=== PATIENT | female | born 1940 | race Caucasian/White ===

== ENCOUNTER 2017-05-20 10:33 | Inpatient (IN) | payer BC, MEDICARE ==
[~2017-05-20] VITALS: Ht 167.6 cm; Wt 68.0 kg
[~2017-05-20 10:33] MED LIST: HYDR12.56 PO
[2017-05-20 10:37] VITALS: BP 164/95; PULSE 68; RESP 16; TEMP 98.1; O2SAT 95
[2017-05-20 11:00] VITALS: BP_SYST 168; BP_SYST 183; BP_DIAS 79; BP_DIAS 82; PULSE 61; RESP 18; TEMP 98.4; O2SAT 97
[2017-05-20] MEDS ORDERED: NITROGLYCERIN 0.4 MG SL 25 TABS/BTL SL ONE (11:00)
[2017-05-20] MEDS ORDERED: SODIUM CHLORIDE 0.9% FLUSH 10 ML FLUSH IVF PRN (11:00)
[2017-05-20] MEDS ORDERED: ASPIRIN 325 MG TAB PO ONE (11:00)
[2017-05-20 11:24] LABS: AUTOMATED NEUTROPHIL # 2.9 TH/MM3 (1.8-7.7); BASOPHIL % 0.7 % (0.0-2.0); EOSINOPHIL # 0.1 TH/MM3 (0-0.4); EOSINOPHIL % 2.2 % (0.0-4.0); HEMATOCRIT 38.6 % (35.0-46.0); HEMO FLAGS DIFF FINAL; LYMPH % 36.2 % (9.0-44.0); LYMPHOCYTE # 2.1 TH/MM3 (1.0-4.8); MEAN CELL VOLUME 81.4 FL (80.0-100.0); MEAN CORPUSCULAR HEMOGLOBIN 27.8 PG (27.0-34.0); MEAN CORPUSCULAR HGB CONC 34.2 % (32.0-36.0); NEUT % 50.9 % (16.0-70.0); PLATELET COUNT 232 TH/MM3 (150-450); RED BLOOD COUNT 4.74 MIL/MM3 (4.00-5.30); RED CELL DISTRIBUTION WIDTH 13.9 % (11.6-17.2); WHITE BLOOD COUNT 5.7 TH/MM3 (4.0-11.0)
--- NOTE | 2017-05-20 11:36 | PD ---
HPI Chief Complaint: Cardiac Complaint Time Seen by Provider: 10:45 Travel History International Travel<30 days: No Contact w/Intl Traveler<30days: No Traveled to known affect area: No History of Present Illness HPI 76 y/o female presents with left arm heaviness and was referred here from her primary. They did an EKG there and wanted her to be observed in the chest pain center. She denies any current heaviness now but noted some when she was walking back into the room. She denies taking an aspirin yet today. She denies prior history of this. She denies any prior routine heart testing. She does note that she took an Advil sinus medication this morning because she's been dealing with that for a while. She denies other concurrent complaints. [facility] Past Medical History Cardiovascular Problems: Yes Hypertension: Yes Influenza Vaccination: No ?: Unknown Past Surgical History Cholecystectomy: Yes (2005) Social History Alcohol Use: Yes (on occasion) Tobacco Use: No Substance Use: No Allergies-Medications (Allergen,Severity, Reaction): Coded Allergies: No Known Allergies (Verified , 10/10/14) Uncoded Allergies: LACTOSE INTOLERANT, KIWI FRUIT & FRESH MINT. (Allergy, Unknown, 07/29/03) Reported Meds & Prescriptions Reported Meds & Active Scripts Active Reported Hctz (Hydrochlorothiazide) 12.5 Mg Cap 12.5 Mg PO DAILY Review of Systems Except as stated in HPI: all other systems reviewed are Neg Physical Exam Narrative GENERAL: Well-nourished, well-developed patient. well appearing SKIN: Warm and dry. HEAD: Normocephalic and atraumatic. EYES: No injection or drainage. ENT: No nasal drainage noted. NECK: Supple, trachea midline. CARDIOVASCULAR: Regular rate and rhythm RESPIRATORY: Breath sounds equal bilaterally at apices. No accessory muscle use. GASTROINTESTINAL: Abdomen soft, non-tender, nondistended. EXTREMITIES: No edema. NEUROLOGICAL: Awake and alert. moves all extremities. Normal speech. Data Data Last Documented VS Vital Signs Date Time Temp Pulse Resp B/P Pulse Ox O2 Delivery O2 Flow Rate FiO2 05/20/17 11:02 89 18 98 Room Air 05/20/17 11:00 98.4 183/79 168/82 Orders Electrocardiogram (05/20/17 10:53) B-Type Natriuretic Peptide (05/20/17 10:53) Ckmb (Isoenzyme) Profile (05/20/17 10:53) Complete Blood Count With Diff (05/20/17 10:53) Comprehensive Metabolic Panel (05/20/17 10:53) Magnesium (Mg) (05/20/17 10:53) Prothrombin Time / Inr (Pt) (05/20/17 10:53) Act Partial Throm Time (Ptt) (05/20/17 10:53) Troponin I (05/20/17 10:53) Chest, Single Ap (05/20/17 10:53) Ecg Monitoring (05/20/17 10:53) Bilateral Bp Monitoring (05/20/17 10:53) Iv Access Insert/Monitor (05/20/17 10:53) Oximetry (05/20/17 10:53) Aspirin (Aspirin) (05/20/17 11:00) Sodium Chloride 0.9% Flush (Ns Flush) (05/20/17 11:00) Nitroglycerin Sl (Nitrostat Sl) (05/20/17 11:00) Admit Order (Ed Use Only) (05/20/17 11:58) Labs Laboratory Tests Test 05/20/17 10:57 White Blood Count 5.7 TH/MM3 Red Blood Count 4.74 MIL/MM3 Hemoglobin 13.2 GM/DL Hematocrit 38.6 % Mean Corpuscular Volume 81.4 FL Mean Corpuscular Hemoglobin 27.8 PG Mean Corpuscular Hemoglobin 34.2 % Concent Red Cell Distribution Width 13.9 % Platelet Count 232 TH/MM3 Mean Platelet Volume 7.7 FL Neutrophils (%) (Auto) 50.9 % Lymphocytes (%) (Auto) 36.2 % Monocytes (%) (Auto) 10.0 % Eosinophils (%) (Auto) 2.2 % Basophils (%) (Auto) 0.7 % Neutrophils # (Auto) 2.9 TH/MM3 Lymphocytes # (Auto) 2.1 TH/MM3 Monocytes # (Auto) 0.6 TH/MM3 Eosinophils # (Auto) 0.1 TH/MM3 Basophils # (Auto) 0.0 TH/MM3 CBC Comment DIFF FINAL Differential Comment Prothrombin Time 10.0 SEC Prothromb Time International 0.9 RATIO Ratio Activated Partial 25.0 SEC Thromboplast Time Sodium Level 141 MEQ/L Potassium Level 3.5 MEQ/L Chloride Level 105 MEQ/L Carbon Dioxide Level 27.2 MEQ/L Anion Gap 9 MEQ/L Blood Urea Nitrogen 14 MG/DL Creatinine 0.98 MG/DL Estimat Glomerular Filtration 55 ML/MIN Rate Random Glucose 86 MG/DL Calcium Level 8.9 MG/DL Magnesium Level 2.2 MG/DL Total Bilirubin 0.3 MG/DL Aspartate Amino Transf 20 U/L (AST/SGOT) Alanine Aminotransferase 20 U/L (ALT/SGPT) Alkaline Phosphatase 66 U/L Total Creatine Kinase 86 U/L Troponin I LESS THAN 0.02 NG/ML Total Protein 7.4 GM/DL Albumin 4.0 GM/DL MDM Medical Decision Making Medical Screen Exam Complete: Yes Emergency Medical Condition: Yes Medical Record Reviewed: Yes (pmh confirmed) Interpretation(s) EKG shows NSR, no ST elevation or depression, and no arrhythmias. No significant T-wave inversions. CBC & BMP Diagram 05/20/17 10:57 cxr no acute Differential Diagnosis Musculoskeletal, cardiac, gastritis Narrative Course Will check blood work, chest x-ray, EKG and monitor ed workup no emergent, will place in chest pain center observation Diagnosis Primary Impression: Chest pain Qualified Code: R07.9 - Chest pain, unspecified type Admitting Information Admitting Physician Requests: Observation Nadiya Mai MD May 20, 2017 11:36
[2017-05-20 11:42] LABS: INTERNATIONAL NORMALIZED RATIO 0.9 RATIO
[2017-05-20 11:50] LABS: ANION GAP 9 MEQ/L (5-15); AST (GOT) 20 U/L (15-37); BICARBONATE 27.2 MEQ/L (21.0-32.0); BLOOD UREA NITROGEN 14 MG/DL (7-18); CHLORIDE 105 MEQ/L (98-107); GLOMERULAR FILTRATION RATE 55 ML/MIN (>89); MAGNESIUM 2.2 MG/DL (1.5-2.5); POTASSIUM 3.5 MEQ/L (3.5-5.1); SODIUM (NA) 141 MEQ/L (136-145)
--- NOTE | 2017-05-20 11:54 | RADRPT ---
EXAM DATE/TIME: 05/20/2017 11:08 [place] COMPARISON: No previous studies available for comparison. INDICATIONS : Fatigue and heavy feeling in chest for 2 months, had EKG in doctors office this morning and was advis ed to come to ER MEDICAL HISTORY : None. SURGICAL HISTORY : None. ENCOUNTER: Initial ACUITY: 2 months PAIN SCORE: 0/10 LOCATION: Bilateral chest FINDINGS: A single view of the chest demonstrates the lungs to be symmetrically aerated without evidence of mas s, infiltrate or effusion. The cardiomediastinal contours are unremarkable. Osseous structures are intact. CONCLUSION: No acute disease. Yao Brito MD FACR on May 20, 2017 at 11:50 Board Certified Radiologist. This report was verified electronically.
[2017-05-20 11:55] LABS: ALKALINE PHOSPHATASE 66 U/L (45-117); ALT (GPT) 20 U/L (10-53); TOTAL BILIRUBIN ADULT 0.3 MG/DL (0.2-1.0)
[2017-05-20 11:56] LABS: CREATINE KINASE 86 U/L (26-192)
[2017-05-20] MEDS ORDERED: ACETAMINOPHEN 500 MG CPLT PO PRN (13:15)
[2017-05-20] MEDS ORDERED: cloNIDine HCL 0.1 MG TAB PO PRN (13:15)
[2017-05-20] MEDS ORDERED: SODIUM CHLORIDE 0.9% FLUSH 5 ML FLUSH IVF PRN (13:15)
[2017-05-20] MEDS ORDERED: ONDANSETRON HCL 4 MG/2 ML VIAL IV PRN (13:15)
[2017-05-20] MEDS ORDERED: ACETAMINOPHEN/HYDROcodone 325 MG/7.5 MG TAB PO PRN (13:15)
--- NOTE | 2017-05-20 13:28 | HHI.HP ---
[facility] Primary Care Physician Trav Nino MD Chief Complaint Chest pain History of Present Illness This is a 76-year-old female that presents to ED with history of hypertension with a complaint of chest discomfort. Patient states that prior to March she was very active. She played tennis. She exercise. She went up flights of stairs without any issues. However in March she started to have problems going up stairs. She states she cannot go up a couple steps without having to stop secondary to chest heaviness/tightness. She states when it occurs it is in the left center of her chest and will radiate down her left arm. When she stops that she is doing the discomfort will resolve but states is almost a guarantee that it will recur with another activity. Now the discomforts are starting to occur even with just walking very short distances on flat surface. She also states that she has been very fatigued as well. She saw her primary care physician this morning and had an EKG and then was advised to go to the ED and likely admission to chest pain center. She had an episode of discomfort today while walking in her house to the kitchen. She had to stop secondary to the discomfort. She has had no shortness breath, nausea, or diaphoresis with the symptoms. Denies recent travel. Denies fevers or chills. Denies recent illnesses. Review of Systems General: Patient denies fevers, chills recent, and recent travel HEENT: Patient denies headache, sore throat, difficulty swallowing. Cardiovascular: Has the chest discomfort as mentioned above. Denies sensation of heart beating rapidly or irregularly. No syncope. Denies diaphoresis. Respiratory: Denies shortness of breath or inspirational chest discomfort. Denies coughing wheezing or hemoptysis. GI: Patient denies nausea, vomiting, diarrhea, abdominal pain, bloody stools. Musculoskeletal: Patient denies joint pain or edema. Denies calf pain or edema. Neurovascular: Patient denies numbness, tingling, weakness in extremities. Denies headache. Endocrine: Denies polyuria and polydipsia. Hematologic: Denies easy bruising. Skin: Denies rash or itching. Past Family Social History Allergies: Coded Allergies: No Known Allergies (Verified , 10/10/14) Uncoded Allergies: LACTOSE INTOLERANT, KIWI FRUIT & FRESH MINT. (Allergy, Unknown, 07/29/03) Past Medical History Hypertension. Chronic sinusitis. Denies hyperlipidemia, diabetes, and known CAD. Past Surgical History Cholecystectomy. Reported Medications Reported Meds & Active Scripts Active Reported Hctz (Hydrochlorothiazide) 12.5 Mg Cap 12.5 Mg PO DAILY Active Ordered Medications Current Medications Medications (Trade) Dose Ordered Sig/Meredith Route Start Time Stop Time Status Last Admin (NS Flush) 2 ml UNSCH PRN IVF 05/20/17 11:00 (NS Flush) 2 ml UNSCH PRN IVF 05/20/17 13:15 UNV (NS Flush) 2 ml BID IVF 05/20/17 21:00 UNV (Tylenol) 500 mg Q4H PRN PO 05/20/17 13:15 UNV (Blanchard 7.5-325 Mg) 1 tab Q4H PRN PO 05/20/17 13:15 UNV (Zofran Inj) 4 mg Q6H PRN IV 05/20/17 13:15 UNV (Protonix) 40 mg DAILY PO 05/20/17 13:15 UNV (Aspirin) 325 mg DAILY PO 05/21/17 09:00 UNV (Xanax) 0.25 mg Q8H PRN PO 05/20/17 13:15 UNV Family History Denies family history of CAD. Social History Patient is a lifetime nonsmoker. Denies illicit drugs. Has occasional wine. Physical Exam Vital Signs Vital Signs Date Time Temp Pulse Resp B/P Pulse Ox O2 Delivery O2 Flow Rate FiO2 05/20/17 11:02 89 18 98 Room Air 05/20/17 11:00 18 97 Room Air 05/20/17 11:00 98.4 61 18 183/79 97 Room Air 168/82 05/20/17 10:37 98.1 68 16 164/95 95 Physical Exam GENERAL: This is a well-nourished, well-developed patient, in no apparent distress. Patient speaks in clear complete sentences. Patient is pleasant. HEENT: Head is atraumatic and normocephalic. Neck is supple without lymphadenopathy and trachea is midline. No JVD or carotid bruits. CARDIOVASCULAR: Regular rate and rhythm without murmurs, gallops, or rubs. RESPIRATORY: Clear to auscultation. Breath sounds equal bilaterally. No wheezes , rales, or rhonchi. Chest wall is tender however it is different than the discomfort that she has been having. No use of accessory muscles. GASTROINTESTINAL: Abdomen is nontender, nondistended. Abdomen soft. No obvious pulsatile mass or bruit. No CVA tenderness. Strong femoral pulses bilaterally. Normal bowel sounds in all quadrants. MUSCULOSKELETAL: Patient is moving upper and lower extremities freely. No calf tenderness or edema, no Homans sign. Strong pulses in upper and lower extremities. NEUROLOGICAL: Patient is alert and oriented. Cranial nerves 2-12 are grossly intact. No focal deficits and speech is clear. SKIN: No rash and turgor is normal. Laboratory Laboratory Tests Test 05/20/17 10:57 White Blood Count 5.7 Red Blood Count 4.74 Hemoglobin 13.2 Hematocrit 38.6 Mean Corpuscular Volume 81.4 Mean Corpuscular Hemoglobin 27.8 Mean Corpuscular Hemoglobin 34.2 Concent Red Cell Distribution Width 13.9 Platelet Count 232 Mean Platelet Volume 7.7 Neutrophils (%) (Auto) 50.9 Lymphocytes (%) (Auto) 36.2 Monocytes (%) (Auto) 10.0 Eosinophils (%) (Auto) 2.2 Basophils (%) (Auto) 0.7 Neutrophils # (Auto) 2.9 Lymphocytes # (Auto) 2.1 Monocytes # (Auto) 0.6 Eosinophils # (Auto) 0.1 Basophils # (Auto) 0.0 CBC Comment DIFF FINAL Differential Comment Prothrombin Time 10.0 Prothromb Time International 0.9 Ratio Activated Partial 25.0 Thromboplast Time Sodium Level 141 Potassium Level 3.5 Chloride Level 105 Carbon Dioxide Level 27.2 Anion Gap 9 Blood Urea Nitrogen 14 Creatinine 0.98 Estimat Glomerular Filtration 55 Rate Random Glucose 86 Calcium Level 8.9 Magnesium Level 2.2 Total Bilirubin 0.3 Aspartate Amino Transf 20 (AST/SGOT) Alanine Aminotransferase 20 (ALT/SGPT) Alkaline Phosphatase 66 Total Creatine Kinase 86 Troponin I LESS THAN 0.02 B-Type Natriuretic Peptide 20 Total Protein 7.4 Albumin 4.0 Result Diagram: 05/20/17 1057 05/20/17 1057 Assessment and Plan Assessment and Plan * Chest pain: Patient's story is somewhat concerning for coronary artery disease. She will continue to have serial cardiac enzymes and EKGs. She will be seen by Dr. Doron Garcia of cardiology and the chest pain center. I discussed this patient with Dr. Ly who is covering for Dr. Sneed. He has requested the patient be admitted to the hospitalist and to consult Dr. Sneed and then one of his associates will see the patient and likely perform a heart catheterization. No heparin at this time. Patient is asymptomatic when resting. We'll start beta juani. We'll get a lipid panel in the morning. * Hypertension: Continue Hydrocort thiazide. We'll add beta juani. Patient is agreeable to this plan. Erik Limon May 20, 2017 13:28
--- NOTE | 2017-05-20 14:30 | EKG ---
Date Performed: 05/20/2017 Time Performed: 11:01:26 PTAGE: 76 years EKG: Sinus rhythm WITH FIRST DEGREE AV BLOCK LOW QRS VOLTAGE IN PRECORDIAL LEADS ABNORMAL ECG NO SIGNIFICANT CHANGE FR OM PRIOR ELECTROCARDIOGRAM. PREVIOUS TRACING : 05/20/2017 10.57 DOCTOR: Julien Wilson Interpretating Date/Time 05/20/2017 14:28:48
[2017-05-20] MEDS: PANTOPRAZOLE SOD 40 MG DELAYED RELEASE TAB PO SCH (14:52)
[2017-05-20] MEDS: METOPROLOL TARTRATE 25 MG TAB PO SCH ×2 (14:58→23:12)
[2017-05-20 15:47] LABS: CREATINE KINASE 78 U/L (26-192)
[2017-05-20 16:00] VITALS: BP 197/88; PULSE 65; RESP 17; TEMP 95.7; O2SAT 90
[2017-05-20 18:25] LABS: CREATINE KINASE 80 U/L (26-192)
--- NOTE | 2017-05-20 18:36 | PD.CONS ---
HPI Service Cardiology Physicians Consult Requested By Chest pain center Reason for Consult Chest pain Primary Care Physician Trav Nino MD History of Present Illness Mrs. Mendoza is a pleasant 76-year-old female known to Dr. Sneed that presented to ED with a complaints of chest discomfort. She has a history of hypertension. She states that prior to March she was very active, playing tennis and exercising regularly. In March she started having problems with chest heaviness/tightness going up stairs. She describes this as a left midsternal chest chest discomfort with radiation down her left arm. The pain resolves with rest. The pain is becoming more frequent and occurs with walking very short distances on flat surfaces. She also has complaints of fatigue. She denies any shortness of breath, palpitations or edema. This morning she saw her PCP, had an EKG and was advised to go to the ED for further evaluation. EKG normal sinus rhythm without acute changes. Troponins have been negative x 2. CXR was negative. She is currently resting in bed without distress, currently pain free. Review of Systems Consitutional: DENIES: Fatigue, Fever, Chills, Weight gain, Weight loss Eyes: DENIES: Amaurosis Fugax, Change in vision HEENT: DENIES: Lightheadedness, Change in hearing Respiratory: DENIES: See HPI, Cough, Snoring, Shortness of breath, Wheezing, Sputum production Cardiovascular: COMPLAINS OF: Chest pain, DENIES: See HPI, Palpitations, Syncope, Tachycardia Gastrointestinal: DENIES: Nausea, Vomiting, Change in bowel habits, Reflux, Bloody stools, Melena Genitourinary: DENIES: Urinary incontinence, Difficulty voiding Integumentary: DENIES: Rash Neurologic: DENIES: Tingling or numbness, Memory problems, Poor Balance, Stroke symptoms Musculoskeletal: DENIES: Joint pain, Muscle pain, Limited range of motion, Back pain Psychiatric: DENIES: Anxiety, Depression, Sleep disturbances Hematologic: DENIES: Bruising tendencies, Bleeding tendencies Endocrine: DENIES: Weight gain, Weight loss, Thyroid disease Past Family Social History Allergies: Coded Allergies: No Known Allergies (Verified , 10/10/14) Uncoded Allergies: LACTOSE INTOLERANT, KIWI FRUIT & FRESH MINT. (Allergy, Unknown, 07/29/03) Past Medical History Hypertension Reported Medications Reported Meds & Active Scripts Active Reported Hctz (Hydrochlorothiazide) 12.5 Mg Cap 12.5 Mg PO DAILY Active Ordered Medications Current Medications Medications (Trade) Dose Ordered Sig/Meredith Route Start Time Stop Time Status Last Admin (NS Flush) 2 ml UNSCH PRN IVF 05/20/17 13:15 (NS Flush) 2 ml BID IVF 05/20/17 21:00 (Tylenol) 500 mg Q4H PRN PO 05/20/17 13:15 (Chelsea 7.5-325 Mg) 1 tab Q4H PRN PO 05/20/17 13:15 (Zofran Inj) 4 mg Q6H PRN IV 05/20/17 13:15 (Protonix) 40 mg DAILY PO 05/20/17 14:00 (Aspirin) 325 mg DAILY PO 05/21/17 09:00 (Xanax) 0.25 mg Q8H PRN PO 05/20/17 13:15 (Catapres) 0.1 mg Q4H PRN PO 05/20/17 13:15 05/20/17 17:28 (Lopressor) 25 mg Q12HR PO 05/20/17 15:00 05/20/17 14:58 Family History non contributory Social History She is , lives with her . Denies any smoking or elicit drug use. Physical Exam Vital Signs Vital Signs Date Time Temp Pulse Resp B/P Pulse Ox O2 Delivery O2 Flow Rate FiO2 05/20/17 16:00 95.7 65 17 197/88 90 05/20/17 11:02 89 18 98 Room Air 05/20/17 11:00 18 97 Room Air 05/20/17 11:00 98.4 61 18 183/79 97 Room Air 168/82 05/20/17 10:37 98.1 68 16 164/95 95 Physical Exam GENERAL: Awake, alert. No distress. SKIN: Warm and dry. HEAD: Atraumatic. Normocephalic. EYES: Pupils equal and round. No scleral icterus. ENT: No nasal bleeding or discharge. Mucous membranes pink and moist. NECK: Trachea midline. No JVD. CARDIOVASCULAR: Regular rate and rhythm. Flow murmur over the aortic valve. RESPIRATORY: No accessory muscle use. Clear to auscultation. Breath sounds equal bilaterally. GASTROINTESTINAL: Abdomen soft, non-tender, nondistended. MUSCULOSKELETAL: Extremities without clubbing, cyanosis, or edema. No obvious deformities. NEUROLOGICAL: Awake and alert. No obvious cranial nerve deficits. Motor grossly within normal limits. Five out of 5 muscle strength in the arms and legs. Normal speech. PSYCHIATRIC: Appropriate mood and affect; insight and judgment normal. Laboratory Laboratory Tests Test 05/20/17 05/20/17 10:57 14:45 White Blood Count 5.7 Red Blood Count 4.74 Hemoglobin 13.2 Hematocrit 38.6 Mean Corpuscular Volume 81.4 Mean Corpuscular Hemoglobin 27.8 Mean Corpuscular Hemoglobin 34.2 Concent Red Cell Distribution Width 13.9 Platelet Count 232 Mean Platelet Volume 7.7 Neutrophils (%) (Auto) 50.9 Lymphocytes (%) (Auto) 36.2 Monocytes (%) (Auto) 10.0 Eosinophils (%) (Auto) 2.2 Basophils (%) (Auto) 0.7 Neutrophils # (Auto) 2.9 Lymphocytes # (Auto) 2.1 Monocytes # (Auto) 0.6 Eosinophils # (Auto) 0.1 Basophils # (Auto) 0.0 CBC Comment DIFF FINAL Differential Comment Prothrombin Time 10.0 Prothromb Time International 0.9 Ratio Activated Partial 25.0 Thromboplast Time Sodium Level 141 Potassium Level 3.5 Chloride Level 105 Carbon Dioxide Level 27.2 Anion Gap 9 Blood Urea Nitrogen 14 Creatinine 0.98 Estimat Glomerular Filtration 55 Rate Random Glucose 86 Calcium Level 8.9 Magnesium Level 2.2 Total Bilirubin 0.3 Aspartate Amino Transf 20 (AST/SGOT) Alanine Aminotransferase 20 (ALT/SGPT) Alkaline Phosphatase 66 Total Creatine Kinase 86 78 Troponin I LESS THAN 0.02 LESS THAN 0.02 B-Type Natriuretic Peptide 20 Total Protein 7.4 Albumin 4.0 Result Diagram: 05/20/17 1057 05/20/17 1057 Imaging Last 24 hours Impressions Chest X-Ray 05/20/17 1053 Signed Impressions: Service Date/Time: Saturday, May 20, 2017 11:08 - CONCLUSION: No acute disease. Yao Brito MD FACR Assessment and Plan Assessment and Plan 1. Chest pain, R/O ACS 2. Hypertension Troponin negative x 2. Currently pain free. Continue aspirin, beta juani. Will add ranexa, statin and sub q heparin. Plan for cardiac catheterization on Tuesday with Dr. Sneed. Dr. Durbin to cover the weekend. Code Status Full Discussed Condition With Dr. Aliyah Ojeda,Carolyn HADLEY May 20, 2017 18:36
[2017-05-20 19:53] VITALS: BP 100/62; PULSE 62; RESP 18; TEMP 98.4; O2SAT 96
[2017-05-20] MEDS ORDERED: HEPARIN SODIUM - SQ 10,000 UNITS/ML VIAL SQ SCH (21:00)
[2017-05-20] MEDS: SODIUM CHLORIDE 0.9% FLUSH 5 ML FLUSH IVF SCH (21:00)
[2017-05-20 22:00] VITALS: O2SAT 95
[2017-05-20] MEDS: RANOLAZINE 500 MG EXTENDED RELEASE TAB PO SCH (23:12)
[2017-05-20 23:15] VITALS: BP 115/56; PULSE 65; RESP 18; TEMP 98; O2SAT 96
[2017-05-21] VITALS (9 sets, daily range): BP systolic 92–128; BP diastolic 58–73; PULSE 55–77; RESP 14–20; TEMP 97–98; O2SAT 94–98
[2017-05-21 05:45] LABS: HDL CHOLESTEROL 57.8 MG/DL (40.0-60.0)
--- NOTE | 2017-05-21 07:05 | EKG ---
Date Performed: 05/20/2017 Time Performed: 17:27:25 PTAGE: 76 years EKG: SINUS BRADYCARDIA WITH FIRST DEGREE AV BLOCK LOW QRS VOLTAGE IN PRECORDIAL LEADS ABNORMAL E CG NO SIGNIFICANT CHANGE FROM PRIOR ELECTROCARDIOGRAM. PREVIOUS TRACING : 05/20/2017 14.57 DOCTOR: Julien Wilson Interpretating Date/Time 05/21/2017 07:04:03
[2017-05-21] MEDS: SODIUM CHLORIDE 0.9% FLUSH 5 ML FLUSH IVF SCH ×2 (09:00→20:23)
[2017-05-21] MEDS: PANTOPRAZOLE SOD 40 MG DELAYED RELEASE TAB PO SCH (09:52)
[2017-05-21] MEDS: RANOLAZINE 500 MG EXTENDED RELEASE TAB PO SCH ×2 (09:53→21:56)
[2017-05-21] MEDS: ATORVASTATIN 20 MG TAB PO SCH (09:56)
[2017-05-21] MEDS: ASPIRIN 325 MG TAB PO SCH (09:56)
--- NOTE | 2017-05-21 10:20 | HHI.PR ---
Subjective Remarks Follow-up for chest pain. at bedside. The patient was admitted to chest pain center, however history was concerning for fairly typical angina, and thus the patient was admitted to the medical service with cardiology consultation. The patient states that recently she's been having episodes of fatigue, chest tightness, occasionally radiating to the left shoulder, with activity. The patient states that she thought the fatigue and weakness were due to chronic sinusitis. No chest pain or shortness of breath during admission. She reports a history of hypertension. She denies any tobacco use history or significant family history for CAD. All questions answered to the best of my ability. Awaiting cardiology input. Patient agreeable for anticoagulation and optimizing medications for medical management of possible CAD at this time. Objective Vitals Vital Signs Date Time Temp Pulse Resp B/P Pulse Ox O2 Delivery O2 Flow Rate FiO2 05/21/17 07:43 97.9 55 16 99/66 96 05/21/17 03:54 98.0 67 16 92/58 96 05/20/17 23:15 98.0 65 18 115/56 96 05/20/17 22:00 95 05/20/17 19:53 98.4 62 18 100/62 96 05/20/17 16:00 95.7 65 17 197/88 90 05/20/17 11:02 89 18 98 Room Air 05/20/17 11:00 18 97 Room Air 05/20/17 11:00 98.4 61 18 183/79 97 Room Air 168/82 05/20/17 10:37 98.1 68 16 164/95 95 I/O 05/20/17 05/20/17 05/20/17 05/21/17 05/21/17 05/21/17 07:00 15:00 23:00 07:00 15:00 23:00 Intake Total 200 ml 200 ml Balance 200 ml 200 ml Intake Oral 200 ml 200 ml Result Diagram: 05/20/17 1057 05/20/17 1057 Imaging Last Impressions Chest X-Ray 05/20/17 1053 Signed Impressions: Service Date/Time: Saturday, May 20, 2017 11:08 - CONCLUSION: No acute disease. Yao Brito MD FACR Objective Remarks GENERAL: Well-developed well-nourished. In no acute distress. SKIN: Warm and dry. No lesions noted. HEENT: Normocephalic. Pupils equal and round. Mucous membranes pink and moist. CARDIOVASCULAR: Regular rate and rhythm. No murmur appreciated. RESPIRATORY: No accessory muscle use. Clear to auscultation. Breath sounds equal bilaterally. GASTROINTESTINAL: Abdomen soft, non-tender, nondistended. Bowel sounds x4. MUSCULOSKELETAL: No obvious deformities. No clubbing or cyanosis. No edema. NEUROLOGICAL: Awake and alert. No focal neurological deficits. Moves upper and lower extremities spontaneously. Normal speech. PSYCHIATRIC: Appropriate mood and affect; insight and judgment normal. A/P Assessment and Plan 76-year-old female with past medical history of hypertension who presented with chest pain Chest pain: ACS ruled out per protocol with unremarkable serial cardiac enzymes and EKGs. History is concerning for fairly typical angina. Cardiology consulted. Started on aspirin, statin, beta juani, Ranexa. Cardiology is planning on possible catheterization on Tuesday. Discussed with Dr. Lara, start Heparin gtt. Hypertension: Initially accelerated, now soft. Stopped home HCTZ. Started on metoprolol, decrease dose. Chronic venous needed. DVT prophylaxis: Heparin. GI prophylaxis: Protonix Discharge Planning Follow-up cardiology recommendations. Tray Tejada May 21, 2017 10:20
[2017-05-21 10:44] LABS: HEMATOCRIT 37.7 % (35.0-46.0); MEAN CELL VOLUME 81.6 FL (80.0-100.0); MEAN CORPUSCULAR HEMOGLOBIN 28.2 PG (27.0-34.0); MEAN CORPUSCULAR HGB CONC 34.6 % (32.0-36.0); PLATELET COUNT 217 TH/MM3 (150-450); RED BLOOD COUNT 4.62 MIL/MM3 (4.00-5.30); RED CELL DISTRIBUTION WIDTH 13.7 % (11.6-17.2); REVIEW FLAG FINAL; WHITE BLOOD COUNT 5.4 TH/MM3 (4.0-11.0)
[2017-05-21 11:00] LABS: APTT (PATIENT) 25.9 SEC (24.3-30.1); PROTHROMBIN TIME - PATIENT 10.7 SEC (9.8-11.6)
[2017-05-21] MEDS: HEPARIN-D5W INJ 250 ML IV SCH (11:27)
[2017-05-21 19:43] LABS: APTT (PATIENT) 32.4 SEC (24.3-30.1)
[2017-05-21] MEDS: METOPROLOL TARTRATE 25 MG TAB PO SCH (20:22)
[2017-05-22] VITALS (25 sets, daily range): BP systolic 94–139; BP diastolic 51–86; PULSE 56–90; RESP 12–20; TEMP 97.6–98.4; O2SAT 95–98
[2017-05-22] MEDS: ALPRAZolam 0.25 MG TAB PO PRN ×2 (01:41→20:46)
[2017-05-22 04:29] LABS: APTT (PATIENT) 81.2 SEC (24.3-30.1)
--- NOTE | 2017-05-22 08:52 | HHI.PR ---
Subjective Remarks No acute events overnight. Afebrile, vital signs stable. Patient denies any chest pain or shortness of breath overnight. She does hold her chest while speaking and is intermittently short of breath during our interview. Has no concerns or complaints at this time. Objective Vitals Vital Signs Date Time Temp Pulse Resp B/P Pulse Ox O2 Delivery O2 Flow Rate FiO2 05/22/17 07:00 59 05/22/17 07:00 97.7 59 18 133/72 97 05/22/17 05:00 97.6 68 14 136/86 98 05/22/17 04:00 56 05/22/17 03:00 62 05/22/17 02:00 58 05/22/17 01:11 95 21 05/22/17 01:00 64 05/22/17 01:00 97.6 62 12 139/73 96 05/22/17 00:00 58 05/21/17 23:00 62 05/21/17 22:00 68 05/21/17 21:00 72 05/21/17 20:00 77 05/21/17 20:00 98.0 66 14 128/73 95 05/21/17 18:00 77 05/21/17 18:00 98.0 77 20 118/70 98 05/21/17 16:00 97.0 69 17 105/59 94 05/21/17 12:00 97.4 62 16 107/58 94 I/O 05/21/17 05/21/17 05/21/17 05/22/17 05/22/17 05/22/17 07:00 15:00 23:00 07:00 15:00 23:00 Intake Total 200 ml 480 ml 338 ml Balance 200 ml 480 ml 338 ml Intake Oral 200 ml 480 ml 240 ml IV Total 98 ml # Voids 1 3 # Bowel Movements 1 0 Result Diagram: 05/21/17 1026 05/20/17 1057 Objective Remarks Gen.: No acute distress Head: Normocephalic. Atraumatic. EENT: Pupils equal round and reactive to light. Nose without drainage. Airway intact. Throat without injection. Cardiovascular: Regular rate and rhythm. No murmurs, rubs or gallops. Respiratory: Lungs clear to auscultation bilaterally. No wheezes or rhonchi. Abdomen: Soft, nontender, nondistended. No peritoneal signs. Musculoskeletal: No gross deformities. No edema. Skin: No obvious rashes or erythema. Neuro: Sensory and motor grossly intact. Cranial nerves II through XII grossly intact. Psych: Appropriate mood and affect A/P Problem List: (1) Chest pain ICD Code: R07.9 Status: Acute (2) HTN (hypertension) ICD Code: I10 Status: Acute Assessment and Plan 76-year-old female with past medical history of hypertension who presented with chest pain Chest pain: ACS ruled out per protocol with unremarkable serial cardiac enzymes and EKGs. History is concerning for fairly typical angina. Cardiology consulted. Started on aspirin, statin, beta juani, Ranexa. Cardiology is planning on possible catheterization on Tuesday. Discussed with Dr. Lara, start Heparin gtt. Hypertension: Initially accelerated, now soft. Stopped home HCTZ. Started on metoprolol. DVT prophylaxis: Heparin. GI prophylaxis: Protonix Problem Qualifiers (1) Chest pain: Qualified Code: R07.9 - Chest pain, unspecified type Mariann Strickland MD R3 May 22, 2017 08:52
[2017-05-22] MEDS: SODIUM CHLORIDE 0.9% FLUSH 5 ML FLUSH IVF SCH ×2 (09:00→20:42)
[2017-05-22] MEDS: PANTOPRAZOLE SOD 40 MG DELAYED RELEASE TAB PO SCH (09:17)
[2017-05-22] MEDS: RANOLAZINE 500 MG EXTENDED RELEASE TAB PO SCH ×2 (09:17→20:41)
[2017-05-22] MEDS: ASPIRIN 325 MG TAB PO SCH (09:17)
[2017-05-22] MEDS: ATORVASTATIN 20 MG TAB PO SCH (09:17)
[2017-05-22] MEDS: METOPROLOL TARTRATE 25 MG TAB PO SCH ×2 (09:17→20:43)
[2017-05-22 12:49] LABS: APTT (PATIENT) 61.8 SEC (24.3-30.1)
--- NOTE | 2017-05-22 14:59 | PD.CARD.PN ---
Objective Vital Signs / I&O Vital Signs Date Time Temp Pulse Resp B/P Pulse Ox O2 Delivery O2 Flow Rate FiO2 05/22/17 14:00 66 05/22/17 13:28 97 05/22/17 13:00 78 05/22/17 12:00 61 05/22/17 11:00 98.4 62 18 124/75 96 05/22/17 11:00 67 05/22/17 10:00 68 05/22/17 09:00 79 05/22/17 08:00 64 05/22/17 07:00 59 05/22/17 07:00 97.7 59 18 133/72 97 05/22/17 05:00 97.6 68 14 136/86 98 05/22/17 04:00 56 05/22/17 03:00 62 05/22/17 02:00 58 05/22/17 01:11 95 21 05/22/17 01:00 64 05/22/17 01:00 97.6 62 12 139/73 96 05/22/17 00:00 58 05/21/17 23:00 62 05/21/17 22:00 68 05/21/17 21:00 72 05/21/17 20:00 77 05/21/17 20:00 98.0 66 14 128/73 95 05/21/17 18:00 77 05/21/17 18:00 98.0 77 20 118/70 98 05/21/17 16:00 97.0 69 17 105/59 94 I/O 05/21/17 05/21/17 05/21/17 05/22/17 05/22/17 05/22/17 07:00 15:00 23:00 07:00 15:00 23:00 Intake Total 200 ml 480 ml 338 ml Balance 200 ml 480 ml 338 ml Intake Oral 200 ml 480 ml 240 ml IV Total 98 ml # Voids 1 3 # Bowel Movements 1 0 Laboratory Laboratory Tests Test 05/21/17 05/22/17 05/22/17 19:10 03:49 12:02 Activated Partial 32.4 SEC 81.2 SEC 61.8 SEC Thromboplast Time Assessment and Plan Discussed Condition With PT STABLE BUT HAS HAD CP AND SOB ON HEPARIN DRIP AND BBLOCKER LCTA RRR + S4 LABS OK FOR CATH IN AM Gamaliel Durbin DO May 22, 2017 14:59
[2017-05-22] MEDS: HEPARIN-D5W INJ 250 ML IV SCH (18:17)
[2017-05-22 21:28] LABS: APTT (PATIENT) 53.8 SEC (24.3-30.1)
[2017-05-23] VITALS (23 sets, daily range): BP systolic 105–136; BP diastolic 63–82; PULSE 54–90; RESP 18–20; TEMP 97.8–98.3; O2SAT 93–98
[2017-05-23 07:57] LABS: APTT (PATIENT) 104.9 SEC (24.3-30.1)
[2017-05-23] MEDS: SODIUM CHLORIDE 0.9% FLUSH 5 ML FLUSH IVF SCH ×2 (09:00→21:00)
[2017-05-23] MEDS: RANOLAZINE 500 MG EXTENDED RELEASE TAB PO SCH ×2 (09:27→21:27)
[2017-05-23] MEDS: ATORVASTATIN 20 MG TAB PO SCH (09:27)
[2017-05-23] MEDS: METOPROLOL TARTRATE 25 MG TAB PO SCH ×2 (09:27→21:27)
[2017-05-23] MEDS: PANTOPRAZOLE SOD 40 MG DELAYED RELEASE TAB PO SCH (09:27)
[2017-05-23] MEDS: ASPIRIN 325 MG TAB PO SCH (09:27)
[2017-05-23] MEDS ORDERED: SODIUM CHLOR 0.9% 1000 ML INJ 1,000 ML IV SCH ×2 (09:39→14:00)
--- NOTE | 2017-05-23 10:00 | PD.CARD.PN ---
Subjective Subjective Remarks Having symptoms of exhaustion, chest discomfort left arm discomfort Objective Medications Administered Medications Medications (Trade) Dose Ordered Sig/Meredith Route PRN Reason Start Time Stop Time Status Last Admin Dose Admin IV Flush (NS Flush) 2 ml BID IVF 05/20/17 21:00 05/23/17 09:00 Pantoprazole Sodium (Protonix) 40 mg DAILY PO 05/20/17 14:00 05/23/17 09:27 Aspirin (Aspirin) 325 mg DAILY PO 05/21/17 09:00 05/23/17 09:27 Alprazolam (Xanax) 0.25 mg Q8H PRN PO ANXIETY 05/20/17 13:15 05/22/17 20:46 Clonidine (Catapres) 0.1 mg Q4H PRN PO SYS BP GREATER THAN 160 MMHG 05/20/17 13:15 05/20/17 17:28 Ranolazine (Ranexa) 500 mg Q12HR PO 05/20/17 21:00 05/23/17 09:27 Atorvastatin Calcium 20 mg 20 mg DAILY PO 05/21/17 09:00 05/23/17 09:27 Heparin Sodium/ Dextrose (Heparin-D5W Inj) 250 ml @ 0 mls/hr TITRATE IV 05/21/17 08:15 05/22/17 18:17 Metoprolol Tartrate (Lopressor) 12.5 mg Q12HR PO 05/21/17 21:00 05/23/17 09:27 Vital Signs / I&O Vital Signs Date Time Temp Pulse Resp B/P Pulse Ox O2 Delivery O2 Flow Rate FiO2 05/23/17 06:00 65 05/23/17 05:00 66 05/23/17 04:00 63 05/23/17 04:00 Room Air 05/23/17 04:00 98.3 63 18 125/82 98 05/23/17 03:00 66 05/23/17 02:00 66 05/23/17 01:00 64 05/23/17 00:00 98.0 65 20 114/63 97 05/23/17 00:00 Room Air 05/23/17 00:00 65 05/22/17 23:00 69 05/22/17 22:00 70 05/22/17 21:10 97 05/22/17 21:00 78 05/22/17 20:00 98.2 68 20 119/74 96 05/22/17 20:00 Room Air 05/22/17 20:00 Room Air 05/22/17 20:00 68 05/22/17 18:00 90 05/22/17 17:00 65 05/22/17 16:00 61 05/22/17 15:00 98.0 58 18 94/51 97 05/22/17 15:00 59 05/22/17 14:00 66 05/22/17 13:28 97 05/22/17 13:00 78 05/22/17 12:00 61 05/22/17 11:00 98.4 62 18 124/75 96 05/22/17 11:00 67 05/22/17 10:00 68 I/O 05/22/17 05/22/17 05/22/17 05/23/17 05/23/17 05/23/17 07:00 15:00 23:00 07:00 15:00 23:00 Intake Total 338 ml 1198 ml 550 ml Output Total 850 ml 750 ml Balance 338 ml 348 ml -200 ml Intake Oral 240 ml 960 ml 480 ml IV Total 98 ml 238 ml 70 ml Output Urine Total 850 ml 750 ml # Voids 3 # Bowel Movements 0 0 Physical Exam GENERAL: Well-nourished, well-developed patient in no apparent distress. SKIN: Warm and dry. NECK: JVD normal - less than or equal to 5 cm H20. CARDIOVASCULAR: Regular rate and rhythm without murmurs, gallops or rubs. RESPIRATORY: Normal breath sounds - equal bilaterally. No accessory muscle use. No wheezes, rales or rubs. PERIPHERY: No cyanosis or edema. Laboratory Laboratory Tests Test 05/22/17 05/22/17 05/23/17 12:02 19:56 07:15 Activated Partial 61.8 SEC 53.8 SEC 104.9 SEC Thromboplast Time Assessment and Plan Assessment and Plan Laboratory Tests Test 05/20/17 05/20/17 05/20/17 05/21/17 10:57 14:45 17:32 04:43 Monocytes (%) (Auto) 10.0 % (0.0-8.0) Estimat Glomerular Filtration 55 ML/MIN (>89) Rate Troponin I LESS THAN 0.02 LESS THAN 0.02 LESS THAN 0.02 NG/ML NG/ML NG/ML (0.02-0.05) (0.02-0.05) (0.02-0.05) LDL Cholesterol 109 MG/DL (0-99) Test 05/21/17 05/22/17 05/22/17 05/22/17 19:10 03:49 12:02 19:56 Activated Partial 32.4 SEC 81.2 SEC 61.8 SEC 53.8 SEC Thromboplast Time (24.3-30.1) (24.3-30.1) (24.3-30.1) (24.3-30.1) Test 05/23/17 07:15 Activated Partial 104.9 SEC Thromboplast Time (24.3-30.1) Risks of cardiac cath reviewed with pt and family. Theys understand and wish to proceed. Kristal Sneed MD May 23, 2017 10:00
[2017-05-23 10:30] LABS: AUTOMATED NEUTROPHIL # 2.4 TH/MM3 (1.8-7.7); BASOPHIL % 0.5 % (0.0-2.0); EOSINOPHIL # 0.1 TH/MM3 (0-0.4); EOSINOPHIL % 2.3 % (0.0-4.0); HEMATOCRIT 39.2 % (35.0-46.0); HEMO FLAGS DIFF FINAL; LYMPH % 40.4 % (9.0-44.0); MEAN CELL VOLUME 82.6 FL (80.0-100.0); MEAN CORPUSCULAR HEMOGLOBIN 27.1 PG (27.0-34.0); MEAN CORPUSCULAR HGB CONC 32.8 % (32.0-36.0); MONO % 9.2 % (0.0-8.0); NEUT % 47.6 % (16.0-70.0); PLATELET COUNT 195 TH/MM3 (150-450); RED BLOOD COUNT 4.74 MIL/MM3 (4.00-5.30); RED CELL DISTRIBUTION WIDTH 13.9 % (11.6-17.2)
[2017-05-23 10:40] LABS: APTT (PATIENT) 71.1 SEC (24.3-30.1); PROTHROMBIN TIME - PATIENT 10.8 SEC (9.8-11.6)
[2017-05-23 10:43] LABS: BICARBONATE 25.2 MEQ/L (21.0-32.0); POTASSIUM 3.9 MEQ/L (3.5-5.1)
[2017-05-23] MEDS ORDERED: HEPARIN-NS/PF INJ 500 ML ONE (12:17)
[2017-05-23] MEDS ORDERED: MIDAZOLAM HCL 2 MG/2 ML VIAL ONE (12:17)
--- NOTE | 2017-05-23 13:39 | CATHPROC ---
[employer] HIS Report Study Information Study Number Scheduled Start Study Start [id number] 05/23/2017 May 23 2017 12:09PM Referring Institution Admit Source Facility Department 1 Emergency department [facility] - [facility] Physician and Clinical Staff Initial Kristal Medeiros Unstacker Grecia Toledo RN Other cathlab, cathlab Other Greg BRIGGS, Moises Clarke RCIS(BS) Ivette Chavez RCIS TECH2 Procedures Performed Procedure Location (Site) Vessel Name Angiogram LV LV Ventricle Coronary Angiograms LCA Left Coronary Coronary Angiograms RCA Right Coronary L Heart Cath Equipment Time Bone Worker Description Size Mfg Part Number Used/Scraped TRANSDUCER, TRUWAVE [id number] 12:11 MCKEON TOLEDO * Used W/STOCKCOCK *[id number] [id number] *[id number] [id number] *[id number] *[id number] 12:11 [employer] INDUSTRIES PACK, CCL CUSTOM * Used *[id number] 12:11 [employer] PACER PEN, SKIN DUAL W/ RULER * Used *[id number] 12:11 [employer] WIRE, 3MMJ .035 180CM 180CM Used *[id number] PROBE COVER, STERILE [id number] 12:11 [employer] * Used ULTRASOUND W/ GEL *[id number] 12:11 [employer] MANIFOLD, 4 PORT * Used *[id number] 12:11 [employer] OMNIPAQUE, 350 MG, 150ML 150ML [id number] Used 13:17 [employer]ED OMNIPAQUE, 350 MG, 50ML 50ML [id number] Used [id number] 12:11 [facility]EVI [facility] BLANKET,WARM AIR CCL * Used *[id number] 12:11 TERUMO MEDICAL SHEATH, FR4 TERUMO (10CM) FR 4 [id number] Used History: Current Medications Medication Dosage/Unit Route Frequency Last Date/Time Taken Beta Jaspreet History: Allergies Allergy Reaction No Known Allergies LACTOSE INTOLERANT, KIWI FRUIT History: Risk Factors Family History of Hypertension Dyslipidemia Previous ID Previous Heart Failure Premature CAD Yes No No No No Prior Valve Prior PCI Prior CABG Surgery No No No Cerebrovascular Peripheral Artery Chronic Lung On Dialysis Diabetes Disease Disease Disease No No No No No History: Stress Tests Stress or Imaging Studies Performed No History: Other Disease Selection Items HTN History: Other Current Smoker No Labs Hgb (g/dl) Hct (%) WBC (l/cumm) Platelets (thousands) 11.60-17.00 35.00-51.00 4.00-11.00 150.00-450.00 12.0 39 4.7 195 Glucose (mg/dl) BUN (mg/dl) Creatinine (mg/dl) BUN:Creatinine (1:x) 74.00-106.00 7.00-18.00 0.50-1.30 10.00-20.00 86 17 1.0 17 Na (meq/l) K (meq/l) 136.00-145.00 3.50-5.10 143 3.9 INR (PTT:PT) 0.90-1.10 1 Troponin I (ng/ml) CPK (u/l) CPK-MB (ng/ML) 0.02-0.05 26.00-308.00 0.50-3.60 0.02 86 Not Drawn Medication Medication Total Dose (Bolus/Oral) Medication Total Dosage/Unit 1% XYLOCAINE 20 mL FENTANYL 50 mcg OXYGEN 4 l/min VERSED 2 mg Medications (Bolus/Oral) Medication Time Given Dosage/Unit Administered By Reason VERSED 05/23/2017 1:06:40 PM 2 mg Grecia Toledo 2 mg VERSED given in lab by Grecia Toledo RN in Left Antecubital via Peripheral IV. Ordered by Kristal Kerr. FENTANYL 05/23/2017 1:07:22 PM 50 mcg Grecia Toledo 50 mcg FENTANYL given in lab by Grecia Toledo RN in Left Antecubital via Peripheral IV. Ordered by Kristal Sneed. 1% XYLOCAINE 05/23/2017 1:07:48 PM 20 mL Kristal Sneed 20 mL 1% XYLOCAINE given in lab by Kristal Sneed in Right Groin via Subcutaneous. Ordered by Kristal Gautam. OXYGEN 05/23/2017 1:10:39 PM 4 l/min Grecia Toledo 4 l/min OXYGEN given in lab by Grecia Toledo RN in Left Antecubital via Nasal. Ordered by Kristal Da Silva. Medication (Drip) Medication Time Given Dosage/Unit Concentration/Unit Diluent (ml) Solutio n IV Solutions 05/23/2017 12:08:53 PM 0 mL (IV) 500 NaCl .9 Patient arrived on IV Solutions given by cathlab, cathlab in Left Antecubital via Peripheral IV. Pump /Drip Flow = 20 ml/hr using NaCl .9. Ordered by Kristal Sneed. Initial Case Assessment Cardiovascular HR Rhythm NIBP Chest Pain 58 sinus 149/80 0 Edema Present Skin color Skin None Normal Warm Dry Circulatory - Right Pulses Dorsalis Pedis Femoral 2 2 Scale (0,1,2,3,4,d) Circulatory - Left Pulses Dorsalis Pedis Femoral 2 2 Scale (0,1,2,3,4,d) Neurological State Oriented to time-place- Alert Moves all extremities person Respiration - General Respiration Rate SpO2 (%) (B/min) 15 98 Final Case Assessment Cardiovascular HR Rhythm NIBP Chest Pain 61 sinus 121/70 0 Edema Present Skin color Skin None Normal Warm Dry Circulatory - Right Pulses Dorsalis Pedis Femoral 2 2 Scale (0,1,2,3,4,d) Circulatory - Left Pulses Dorsalis Pedis Femoral 2 2 Scale (0,1,2,3,4,d) Neurological State Oriented to time-place- Alert Moves all extremities person Respiration - General Respiration Rate SpO2 (%) (B/min) 15 98 Chronological Log Time Study Chronological Log 12:08:45 Patient arrived via Bed. 12:08:45 Patient Name, D.O.B, / Armband Verified By R.N. 12:08:46 Consent signed by the physician and the patient and verified by the [facility] staff. 12:08:47 Pre-op and post- op instructions given; patient acknowledges understanding of instructions. 12:08:47 Verbal Stimulation=2 Physical Stimulation=2 Airway=2 Respiration=2 TOTAL=8. (0=absent, 1=li mited, 2=present) 12:08:48 Presedation assessment performed by [facility] RN. 12:08:49 Immediate Presedation assesment performed by physician. 12:08:49 Patient has been NPO for More than 6Hrs. 12:08:50 Skin Breakdown- none per patient 12:08:51 Patient Warmer Placed on the Table. 12:08:52 Judith Prominences Protected 12:08:53 A # 20 IV was noted in the Antecubital (left). Grade = 0 Patient arrived on IV Solutions given by cathlab, cathlab in Left Antecubital via Peripheral IV . Pump/Drip Flow = 20 12:08:53 ml/hr using NaCl .9. Ordered by Kristal Sneed. 12:08:54 History and physical on the chart or being dictated. Vitals capture started with the following parameters, Patient=Adult, Interval=5 min, Initial Pr hbvuxe=770 mmHg, 12:16:52 Deflation Rate=5 mmHg Assessment: Initial Case, HR=58 BPM, Rhythm=sinus, PQJT=810/80 mmhg, Chest Pain=0, Edema=None, Color=Normal, Skin = Warm, Dry Right Pulses: Sergio Ped=2, Femoral=2 12:16:57 Left Pulses: Sergio Ped=2, Femoral=2 Neurological: State=Alert, Ox3, RICE Respiration: Resp=15 B/min, SpO2=98 % 12:17:30 HR=58 bpm, XGGC=396/80 mmhg, SpO2=97.0 %, Resp=15 B/min, Pain=0, Luci=10, Sullivan=2 12:19:06 Reference ECG taken 12:22:32 HR=57 bpm, GMLS=591/77 mmhg, SpO2=96.0 %, Resp=9 B/min, Pain=0, Luci=10, Sullivan=2 12:23:36 Bilateral groins prepped with 2% chlorhexidine, and with a 3 min. waiting time. 12:27:29 HR=60 bpm, IRJL=214/88 mmhg, SpO2=96.0 %, Resp=15 B/min, Pain=0, Luci=10, Sullivan=2 12:28:39 MD paged 12:32:34 HR=59 bpm, ZIIA=347/74 mmhg, SpO2=94.0 %, Resp=16 B/min, Pain=0, Luci=10, Sullivan=2 12:33:03 Pressure channel 1 zeroed. 12:37:31 HR=58 bpm, EUFM=042/76 mmhg, SpO2=95.0 %, Resp=13 B/min, Pain=0, Luci=10, Sullivan=2 12:42:34 HR=61 bpm, RLOS=866/76 mmhg, SpO2=97.0 %, Resp=15 B/min, Pain=0, Luci=10, Sullivan=2 12:47:33 HR=57 bpm, MTXU=472/74 mmhg, SpO2=96.0 %, Resp=13 B/min, Pain=0, Luci=10, Sullivan=2 12:49:39 MD notified again 12:50:02 MD responded 12:53:03 HR=58 bpm, PKJQ=499/78 mmhg, SpO2=95.0 %, Resp=9 B/min, Pain=0, Luci=10, Sullivan=2 12:57:33 HR=58 bpm, ZLHZ=009/79 mmhg, SpO2=96.0 %, Resp=10 B/min, Pain=0, Luci=10, Sullivan=2 13:02:09 MD arrived. 13:02:34 HR=63 bpm, NSWH=077/80 mmhg, SpO2=95.0 %, Resp=16 B/min, Pain=0, Luci=10, Sullivan=2 13:06:08 Contrast Scanned 13:06:09 Immediate Presedation assesment performed by physician. 2 mg VERSED given in lab by Grecia Toledo, RN in Left Antecubital via Peripheral IV. Ordere d by Nedra, 13:06:40 Raissaun. Time Out. Correct patient, correct procedure,correct physician, ,power injector loaded with con trast with surgical team 13:07:14 present. Time Out Concurred by , individual staff in procedure 50 mcg FENTANYL given in lab by Grecia Toledo, RN in Left Antecubital via Peripheral IV. Or dered by Nedra, 13:07:22 Humayun. 13:07:33 Case Start 13:07:33 Verbal Stimulation=2 Physical Stimulation=2 Airway=2 Respiration=2 TOTAL=8. (0=absent, 1=li mited, 2=present) 20 mL 1% XYLOCAINE given in lab by Kristal Sneed in Right Groin via Subcutaneous. Ordered by Nedra, 13:07:48 Humayun. 13:08:06 HR=64 bpm, YJHD=803/81 mmhg, SpO2=95.0 %, Resp=15 B/min, Pain=0, Luci=10, Sullivan=2 13:10:39 4 l/min OXYGEN given in lab by Grecia Toledo, RN in Left Antecubital via Nasal. Ordered by Kristal Sneed. 13:11:59 Access site was Right Femoral Artery. 13:12:07 A SHEATH, FR4 TERUMO (10CM) FR 4 was advanced into the Fem Art (right) using the Percutaneo us technique. A JL 4.0 INFINITI CATHETER FR 4 was advanced over a wire. OMNIPAQUE, 350 MG, 150ML 150ML was us ed for 13:12:11 injections. Recorded Pressure: Ao, HR=60, Condition=Condition 1 13:12:19 (Aorta) Ao 110/56/77 13:12:26 The LCA was injected and visualized at various angles. OMNIPAQUE, 350 MG, 150ML 150ML used . 13:12:34 HR=58 bpm, CERH=496/70 mmhg, SpO2=94.0 %, Resp=11 B/min, Pain=0, Luci=10, Sullivan=2 13:14:29 Catheter was removed A 3DRC INFINITI CATHETER FR 4 was advanced over a wire. OMNIPAQUE, 350 MG, 150ML 150ML was used for 13:14:30 injections. 13:15:55 The RCA was injected and visualized at various angles. OMNIPAQUE, 350 MG, 150ML 150ML used . 13:16:52 Catheter was removed A PIGTAIL ANG. INFINITI CATHETER FR 4 was advanced over a wire. OMNIPAQUE, 350 MG, 50ML 50ML wa s used for 13:17:06 injections. 13:17:31 HR=60 bpm, SKXC=753/69 mmhg, SpO2=96.0 %, Resp=15 B/min, Pain=0, Luci=10, Sullivan=2 Recorded Pressure: LV, HR=59, Condition=Condition 1 13:18:48 (Left Ventricle) LV 119/7/14 13:18:54 The LV was injected at 8 cc/sec for a total of 32. OMNIPAQUE, 350 MG, 150ML 150ML used. Recorded Pressure: LV, Ao, HR=66, Condition=Condition 1 13:20:17 (Left Ventricle) LV 99/-2/13, (Aorta) Ao 96/42/67 13:20:28 Catheter was removed 13:20:30 Case End 13:22:02 Activated Clotting Time Drawn Assessment: Final Case, HR=61 BPM, Rhythm=sinus, KRYV=916/70 mmhg, Chest Pain=0, Edema=None, Color=Normal, Skin = Warm, Dry Right Pulses: Sergio Ped=2, Femoral=2 13:22:09 Left Pulses: Sergio Ped=2, Femoral=2 Neurological: State=Alert, Ox3, RICE Respiration: Resp=15 B/min, SpO2=98 % 13:22:34 HR=64 bpm, ANRR=986/70 mmhg, SpO2=97.0 %, Resp=18 B/min, Pain=0, Luci=10, Sullivan=2 13:23:05 No case complications noted. 13:23:06 Cine recording checked. 13:23:09 Bedside Report will be given. 13:23:11 Contrast Scanned 13:23:12 Verbal Stimulation=2 Physical Stimulation=2 Airway=2 Respiration=2 TOTAL=8. (0=absent, 1=li mited, 2=present) 13:23:22 A Left Heart Cath was performed. 13:25:02 ACT (Normal Range 90-180) = 150 13:26:56 Sheath removed; pressure applied to access site. 13:27:33 HR=61 bpm, LUJF=643/71 mmhg, SpO2=98.0 %, Resp=11 B/min, Pain=0, Luci=10, Sullivan=2 13:32:36 HR=64 bpm, SJAL=972/68 mmhg, SpO2=91.0 %, Resp=15 B/min, Pain=0, Luci=10, Sullivan=2 13:37:33 HR=63 bpm, OYHZ=635/68 mmhg, SpO2=92.0 %, Resp=15 B/min, Pain=0, Luci=10, Sullivan=2 13:37:56 Sterile dressing applied to site 13:37:59 Vitals capture stopped. 13:38:00 Patient moved to stretcher End Study - Contrast Media Used In Study Contrast Total Opened (mL) Total Used (mL) Total Wasted (mL) Omnipaque 110 110 0 End Study - Maximum Contrast Load Max Contrast Load (mL) 334.1 End Study - Radiation Exposure Fluoro Time (minutes) 2.1 End Study - Sheaths Sheaths Pulled By Sheath Hold Time (min) Ivette Venegas 12 End Study - Patient Disposition Complications Transferred To Interventional Outcome No Telemetry Bed No attempt made
[2017-05-23] MEDS ORDERED: IOHEXOL 350 MG/ML 100 ML BTL (for Cath Lab) OTHER ONE (13:45)
--- NOTE | 2017-05-23 13:52 | HHI.PR ---
Subjective Remarks Patient seen this morning around 7 AM. Prior to cardiac catheterization. Says she feels all right. Denies any chest pain or shortness of breath Objective Vital Signs Date Time Temp Pulse Resp B/P Pulse Ox O2 Delivery O2 Flow Rate FiO2 05/23/17 06:00 65 05/23/17 05:00 66 05/23/17 04:00 63 05/23/17 04:00 Room Air 05/23/17 04:00 98.3 63 18 125/82 98 05/23/17 03:00 66 05/23/17 02:00 66 05/23/17 01:00 64 05/23/17 00:00 98.0 65 20 114/63 97 05/23/17 00:00 Room Air 05/23/17 00:00 65 05/22/17 23:00 69 05/22/17 22:00 70 05/22/17 21:10 97 05/22/17 21:00 78 05/22/17 20:00 98.2 68 20 119/74 96 05/22/17 20:00 Room Air 05/22/17 20:00 Room Air 05/22/17 20:00 68 05/22/17 18:00 90 05/22/17 17:00 65 05/22/17 16:00 61 05/22/17 15:00 98.0 58 18 94/51 97 05/22/17 15:00 59 05/22/17 14:00 66 I/O 05/22/17 05/22/17 05/22/17 05/23/17 05/23/17 05/23/17 07:00 15:00 23:00 07:00 15:00 23:00 Intake Total 338 ml 1198 ml 550 ml Output Total 850 ml 750 ml Balance 338 ml 348 ml -200 ml Intake Oral 240 ml 960 ml 480 ml IV Total 98 ml 238 ml 70 ml Output Urine Total 850 ml 750 ml # Voids 3 # Bowel Movements 0 0 Result Diagram: 05/23/17 0955 05/23/17 0955 Imaging Last Impressions Chest X-Ray 05/20/17 1053 Signed Impressions: Service Date/Time: Saturday, May 20, 2017 11:08 - CONCLUSION: No acute disease. Yao Brito MD FACR Objective Remarks GENERAL: Sitting up in bed. Appears comfortable.. Oriented 3. SKIN: Warm and dry. HEAD: Normocephalic. EYES: No scleral icterus. No injection or drainage. NECK: Supple, trachea midline. No JVD or lymphadenopathy. CARDIOVASCULAR: Regular rate and rhythm without murmurs, gallops, or rubs. RESPIRATORY: Breath sounds equal bilaterally. No accessory muscle use. GASTROINTESTINAL: Abdomen soft, non-tender, nondistended. MUSCULOSKELETAL: No cyanosis, or edema. BACK: Nontender without obvious deformity. No CVA tenderness. A/P Assessment and Plan ====05/23/17 Pending cardiac catheterization. Vitals, labs reviewed and stable. //Chest pain -Unremarkable serial EKGs, troponins. -Continue aspirin, statin, beta juani, Ranexa. Continues on heparin drip. -Cardiology to plan for catheterization today. // HTN -Initially with blood pressures in the 180s systolic on admission. Improved with medication. -Currently acceptable. Continue to monitor. //DVT Prophylaxis. As per cardiology. //GI prophylaxis: Protonix Discharge Planning Pending cardiology clearance. Mo Johnson MD May 23, 2017 13:52
[2017-05-23] MEDS ORDERED: MISC INFORMATION XX ONE (14:00)
[2017-05-23] MEDS ORDERED: diphenhydrAMINE HCL 25 MG CAP PO ONE (20:45)
[2017-05-24] VITALS (12 sets, daily range): BP systolic 115–134; BP diastolic 72–77; PULSE 56–82; RESP 18; TEMP 98–98.1; O2SAT 94–97
[2017-05-24 04:33] LABS: MEAN CELL VOLUME 80.6 FL (80.0-100.0); MEAN CORPUSCULAR HEMOGLOBIN 27.5 PG (27.0-34.0); MEAN CORPUSCULAR HGB CONC 34.1 % (32.0-36.0); PLATELET COUNT 166 TH/MM3 (150-450); RED BLOOD COUNT 4.34 MIL/MM3 (4.00-5.30); RED CELL DISTRIBUTION WIDTH 13.7 % (11.6-17.2); REVIEW FLAG FINAL; WHITE BLOOD COUNT 4.6 TH/MM3 (4.0-11.0)
[2017-05-24] MEDS: SODIUM CHLORIDE 0.9% FLUSH 5 ML FLUSH IVF SCH (09:00)
[2017-05-24] MEDS: METOPROLOL TARTRATE 25 MG TAB PO SCH (09:36)
[2017-05-24] MEDS: RANOLAZINE 500 MG EXTENDED RELEASE TAB PO SCH (09:36)
[2017-05-24] MEDS: ASPIRIN 325 MG TAB PO SCH (09:37)
[2017-05-24] MEDS: ATORVASTATIN 20 MG TAB PO SCH (09:37)
[2017-05-24] MEDS: PANTOPRAZOLE SOD 40 MG DELAYED RELEASE TAB PO SCH (09:37)
[2017-05-24] MEDS ORDERED: ASPI81TA11 PO (09:49)
[2017-05-24] MEDS ORDERED: ATOR20TA15 PO (09:49)
[2017-05-24] MEDS ORDERED: ASPI81CH3 CHEW (09:49)
[2017-05-24] MEDS ORDERED: RANO500 PO (09:49)
[2017-05-24] MEDS ORDERED: METO25TA3 PO (09:49)
--- NOTE | 2017-05-24 14:50 | HHI.DS ---
Discharge Summary Admission Date May 21, 2017 at 08:15 Discharge Date: May 23, 2017 Admitting Diagnosis chest pain (1) Chest pain ICD Code: R07.9 (2) HTN (hypertension) ICD Code: I10 Procedures cardiac cath. please see report. Brief History - From Admission This is a 76-year-old female that presents to ED with history of hypertension with a complaint of chest discomfort. Patient states that prior to March she was very active. She played tennis. She exercise. She went up flights of stairs without any issues. However in March she started to have problems going up stairs. She states she cannot go up a couple steps without having to stop secondary to chest heaviness/tightness. She states when it occurs it is in the left center of her chest and will radiate down her left arm. When she stops that she is doing the discomfort will resolve but states is almost a guarantee that it will recur with another activity. Now the discomforts are starting to occur even with just walking very short distances on flat surface. She also states that she has been very fatigued as well. She saw her primary care physician this morning and had an EKG and then was advised to go to the ED and likely admission to chest pain center. She had an episode of discomfort today while walking in her house to the kitchen. She had to stop secondary to the discomfort. She has had no shortness breath, nausea, or diaphoresis with the symptoms. Denies recent travel. Denies fevers or chills. Denies recent illnesses. CBC/BMP: 05/24/17 0355 05/23/17 0955 Significant Findings Laboratory Tests Test 05/21/17 05/22/17 05/22/17 05/22/17 19:10 03:49 12:02 19:56 Activated Partial 32.4 SEC 81.2 SEC 61.8 SEC 53.8 SEC Thromboplast Time (24.3-30.1) (24.3-30.1) (24.3-30.1) (24.3-30.1) Test 05/23/17 05/23/17 07:15 09:55 Activated Partial 104.9 SEC 71.1 SEC Thromboplast Time (24.3-30.1) (24.3-30.1) Monocytes (%) (Auto) 9.2 % (0.0-8.0) Chloride Level 110 MEQ/L (98-107) Creatinine 1.09 MG/DL (0.50-1.00) Estimat Glomerular Filtration 49 ML/MIN (>89) Rate Imaging Last Impressions Chest X-Ray 05/20/17 1053 Signed Impressions: Service Date/Time: Saturday, May 20, 2017 11:08 - CONCLUSION: No acute disease. Yao Brito MD FACR PE at Discharge Gen.: No acute distress Head: Normocephalic. Atraumatic. EENT: Pupils equal round and reactive to light. Nose without drainage. Airway intact. Throat without injection. Cardiovascular: Regular rate and rhythm. No murmurs, rubs or gallops. Respiratory: Lungs clear to auscultation bilaterally. No wheezes or rhonchi. Abdomen: Soft, nontender, nondistended. No peritoneal signs. Musculoskeletal: No gross deformities. No edema. Skin: No obvious rashes or erythema. Neuro: Sensory and motor grossly intact. Cranial nerves II through XII grossly intact. Psych: Appropriate mood and affect Hospital Course EKGs and tropining unremarkable. SBP elevated in 180s on admission, improved with adjusting BP meds. underwent cardiac cath without complications. cleared by cardiology for discharge home. for problem based summary from most recent progress note, please see below. ====05/23/17 Pending cardiac catheterization. Vitals, labs reviewed and stable. //Chest pain -Unremarkable serial EKGs, troponins. -Continue aspirin, statin, beta juani, Ranexa. Continues on heparin drip. -s/p cath. report pending. cleared by cardiology // HTN -Initially with blood pressures in the 180s systolic on admission. Improved with medication. -Currently acceptable. Continue to monitor. //DVT Prophylaxis. As per cardiology. //GI prophylaxis: Protonix Pt Condition on Discharge: Good Discharge Disposition: Discharge Home Discharge Time: <= 30 minutes Discharge Instructions DIET: Follow Instructions for: Heart Healthy Diet Activities you can perform: Regular-No Restrictions Follow up Referrals: Cardiology - 1 Week with Kristal Sneed MD PCP Follow-up - 1 Week with Trav Nino MD New Medications: Aspirin (Aspirin 81 Low Dose) 81 Mg Chew 81 MG CHEW DAILY heart #[address] (Aspirin EC) 81 Mg Tabdr 81 MG PO DAILY heart Days 30 Ref 0 TAB Atorvastatin (Atorvastatin) 20 Mg Tab 20 MG PO DAILY cholesterol Days 30 TAB Metoprolol Tartrate (Metoprolol Tartrate) 25 Mg Tab 12.5 MG PO Q12HR heart Days 30 TAB Ranolazine ER 12 HR (Ranexa ER 12 HR) 500 Mg Tab 500 MG PO Q12HR heart Days 30 TAB Continued Medications: Miscellaneous (Hydrochlorothiazide) 12.5 Mg Cap 12.5 MG PO DAILY CAP Mo Johnson MD May 24, 2017 14:50
--- NOTE | 2017-05-24 18:36 | MP ---
cc: KRISTAL SNEED M.D., MARK DUNCAN, JEFFREY D. MD DATE OF SURGERY 05/24/17 INDICATION Unstable angina, grade 3 to 4. The patient had severe chest pain on minimal exertion, was admitted over the weekend. She was seen by two other software engineering project manager, Dr. Ly and Dr. Durbin who also concurred with her primary care physician that she needed a heart catheterization. The risks of the procedure including , bleeding, myocardial infarction, perforation, aspiration, foreseen and unforeseen complications were reviewed. The patient fully appeared to understand the risks. PROCEDURE IN DETAIL The patient prepped and draped in the routine. The right femoral artery was entered using a micropuncture technique with a 4-Bahamian sheath, left and right coronary catheters used to intubate the left and right coronaries. Pigtail catheter used to intubate left ventricle. Multiple angiographic views were carried out. At the end of the catheterization procedure all catheters and sheaths were removed, manual pressure applied until good hemostasis had been achieved. The patient returned to the recovery room in stable condition. FINDINGS Hemodynamics: The aortic pressure was 96/42, mean of 67. The left ventricular pressure 99 with a left end-diastolic pressure 13. No evidence of significant gradient on pullback across the LV outflow tract and aortic valve. Left ventriculogram, the overall left ventricular ejection fraction was 60%. There was no evidence of significant mitral regurgitation or mural thrombus. CORONARIES Left main is free of significant disease. The left anterior descending artery was a large vessel,it has a large first diagonal branch. There was a large circumflex vessel. The ostium of the circumflex had a 50% stenosis. The right coronary artery was a medium-sized vessel with a medium size posterior descending artery and a small posterolateral branches. CONCLUSION Normal LV function. No evidence of significant coronary stenosis. medical management Kristal Sneed MD, FRCP,[facility] /1:35 PM /6:11 PM [facility]
--- NOTE | 2017-05-25 07:34 | EKG ---
Date Performed: 05/20/2017 Time Performed: 14:57:15 PTAGE: 76 years EKG: SINUS BRADYCARDIA LOW QRS VOLTAGE IN PRECORDIAL LEADS BORDERLINE ECG PREVIOUS TRACING : 05/20/2017 11.01 Since previous tracing, no significant change noted DOCTOR: Doron Garcia Interpretating Date/Time 05/25/2017 07:31:25
== END 2017-05-24 10:47 | disposition home or self-care (01) | DRG 287 ==
LOC: NEPE 10:33 → NEDA 11:59 → NEPFCDU 14:41 → OBSVTOIN 05-21 08:15 → HCIS 05-21 17:39
PROVIDERS: ADMIT Internal Medicine; ATTEND Internal Medicine
PROC: B2111ZZ Fluoroscopy of Multiple Coronary Arteries using Low Osmolar Contrast (ICD-10-PCS; 2017-05-23)
PROC: B2151ZZ Fluoroscopy of Left Heart using Low Osmolar Contrast (ICD-10-PCS; 2017-05-23)
PROC: 4A023N7 Measurement of Cardiac Sampling and Pressure, Left Heart, Percutaneous Approach (ICD-10-PCS; principal; 2017-05-23 12:30)
DX: R07.9 Chest pain, unspecified (principal); I10 Essential (primary) hypertension; J32.9 Chronic sinusitis, unspecified
CPT/HCPCS: 71010; 76937; 80048; 80053; 80061; 82550; 83735; 83880; 84484; 85002; 85025; 85027; 85610; 85730; 93005; 93458; C1769; C1893; G0378; J1644; J2250; J3010; J7030; Q9967

== ENCOUNTER → 2017-05-31 | Outpatient (CLI) | payer BC ==
[~2017-05-31] MED LIST changes: +ASPI81CH3 CHEW; +ASPI81TA11 PO; +ATOR20TA15 PO; +METO25TA3 PO; +RANO500 PO
--- NOTE | 2017-06-07 10:05 | RSPPFT ---
DATE OF PROCEDURE: 05/31/17 COMMENTS: The forced vital capacity shows a small reduction with improvement to normal after bronchodilator. The FEV1 and FEF 25-75 are both normal. The FEV1/FVC ratio shows a small reduction. The total lung capacity is normal with an increased residual volume and an increased RV/TLC ratio. IMPRESSION: This is compatible with mild, partially reversible, large and small airways, obstructive lung disease. The diffusion, when corrected, is normal.
--- NOTE | 2017-06-09 12:57 | RSPPFT ---
DATE OF PROCEDURE: 06/06/17 COMMENTS: The forced vital capacity shows a small reduction with improvement to normal after bronchodilator. The FEV1 and FEF 25-75 are both normal with no significant improvement after bronchodilator. The total lung capacity is normal with a small increase in the residual volume and an increased RV/TLC ratio. IMPRESSION: This is compatible with mild, totally reversible, obstructive lung disease. The diffusion capacity when corrected is normal.
== END ==
LOC: HRSP 12:58
PROVIDERS: ATTEND Family Medicine
DX: R06.02 Shortness of breath (principal)
CPT/HCPCS: 94060; 94726; 94729